=== PATIENT | female | born 1965 | race Caucasian/White ===

== ENCOUNTER 2018-08-27 18:57 | Emergency (ER) | payer SELFPAY ==
[2018-08-27 19:17] LABS: PLATELET COUNT, AUTOMATED 402 K/uL (150-450)
--- NOTE | 2018-08-27 19:17 | ER Report ---
History and Physical Time Seen By MD: 18:58 Hx. of Stated Complaint: UNRESPIONSIVE HPI/ROS CHIEF COMPLAINT: Altered mental status and responsive but breathing HISTORY OF PRESENT ILLNESS: 52-year-old female found by her daughter unresponsive but breathing. She had bilateral dilated pupils. Alcohol consumption. EMS performed fingerstick glucose which was 90. They administered Narcan 1 amp in route without provement of condition. On arrival, patient's not protecting her airway. She is unresponsive. She is intubated immediately on arrival. Patient's daughter states she was complaining of ear pain this morning when she was last seen around 9 AM. There was no response. When EMS inserted a nasal trumpet. Patient is moaning and moving all 4 extremities. REVIEW OF SYSTEMS: Unable to obtain due to altered mental status, Allergies: Coded Allergies: UNABLE TO OBTAIN (Unverified , 08/27/18) Constitutional Vital Sign - Last 24 Hours 08/27/18 08/27/18 08/27/18 08/27/18 18:57 18:58 18:58 19:00 Temp 97.3 Pulse 105 103 Resp 28 21 B/P (MAP) 122/75 128/86 (100) Pulse Ox 100 O2 Delivery Non-Rebreather O2 Flow Rate 15.0 08/27/18 08/27/18 08/27/18 08/27/18 19:02 19:07 19:09 19:10 Pulse 101 101 Resp 10 24 B/P (MAP) 119/68 (85) Pulse Ox 99 100 100 O2 Delivery Mechanical Ventilator FiO2 100.0 08/27/18 08/27/18 08/27/18 08/27/18 19:12 19:17 19:20 19:22 Pulse 87 82 81 Resp 51 8 26 B/P (MAP) 127/80 (96) Pulse Ox 100 100 100 08/27/18 08/27/18 08/27/18 08/27/18 19:25 19:27 19:30 19:32 Pulse 88 90 Resp 13 26 B/P (MAP) 118/91 (100) 120/79 (93) Pulse Ox 100 100 08/27/18 08/27/18 08/27/18 08/27/18 19:35 19:40 19:42 19:45 Pulse 91 Resp 48 B/P (MAP) 109/83 (92) 115/77 (90) 107/74 (85) Pulse Ox 99 08/27/18 08/27/18 08/27/18 08/27/18 19:47 19:50 19:52 19:55 Pulse 91 90 Resp 25 25 B/P (MAP) 104/73 (83) 104/70 (81) Pulse Ox 100 98 08/27/18 08/27/18 08/27/18 08/27/18 19:57 20:00 20:02 20:05 Pulse 89 88 Resp 21 26 B/P (MAP) 105/74 (84) 106/72 (83) Pulse Ox 99 99 08/27/18 08/27/18 08/27/18 08/27/18 20:10 20:15 20:20 20:25 Pulse 86 84 83 82 Resp 28 53 54 34 B/P (MAP) 100/70 (80) 84/54 (64) 84/51 (62) 86/49 (61) Pulse Ox 98 98 98 98 08/27/18 08/27/18 08/27/18 08/27/18 20:30 20:35 20:40 20:45 Pulse 82 ??? 71 66 Resp 38 24 24 24 B/P (MAP) 79/53 (62) 89/43 (58) 81/46 (58) 78/38 (51) Pulse Ox 98 99 98 95 08/27/18 08/27/18 08/27/18 08/27/18 20:50 20:55 21:00 21:05 Pulse 67 61 71 79 Resp 22 28 21 21 B/P (MAP) 76/42 (53) 67/34 (45) 82/53 (63) 93/51 (65) Pulse Ox 92 93 97 95 08/27/18 08/27/18 08/27/18 08/27/18 21:10 21:14 21:15 21:40 Pulse 85 86 Resp 15 15 B/P (MAP) 89/49 (62) 80/53 (62) Pulse Ox 98 99 100 O2 Delivery Mechanical Ventilator FiO2 50.0 Physical Exam Vital signs stable, pulse ox 100% on 100% nonrebreather, patient is unresponsive except has some stimulus to pain. She is not protecting her airway. She is not responding to a nasal trumpet. General Appearance: The patient is alert, has no immediate need for airway protection and no signs of toxicity. Patient appears grossly mottled and slightly cyanotic. Eyes: Pupils are dilated to about 7 mm bilaterally. The gaze is disconjugate ENT, Mouth: Mucous membranes are moist. Respiratory: There are no retractions, lungs are clear to auscultation. Cardiovascular: Regular rate and rhythm. Distant heart sounds, no murmur Gastrointestinal: Abdomen is soft and non tender, no masses, bowel sounds nor mal. Neurological: Unresponsive except to painful stimuli. Patient has movement of extremities 4 as she is moaning and thrashing about. Skin: Mottled, cool, dry skin Musculoskeletal: Neck is supple non tender. No meningismus, no lymphadenopathy Extremities are nontender, nonswollen and have full range of motion. DIFFERENTIAL DIAGNOSIS: After history and physical exam differential diagnosis was considered for altered mental status including but not limited to hypoglycemia, infectious process, electrolyte abnormality, head injury and intoxicants. Medical Decision Making Data Points Result Diagram: 08/27/18190408/27/181904 Laboratory Hematology Test 08/27/18 19:05 08/27/18 19:38 08/27/18 21:40 Red Blood Count 4.33 M/uL (4.17-5.56) Mean Corpuscular Volume 114.5 fL (80.0-96.0) Mean Corpuscular Hemoglobin 35.3 pg (26.0-33.0) Mean Corpuscular Hemoglobin Concent 30.8 g/dL (32.0-36.0) Red Cell Distribution Width 15.4 % (11.5-14.5) Mean Platelet Volume 7.5 fL (7.2-11.1) Neutrophils (%) (Auto) 60.9 % (39.4-72.5) Lymphocytes (%) (Auto) 31.8 % (17.6-49.6) Monocytes (%) (Auto) 6.2 % (4.1-12.4) Eosinophils (%) (Auto) 0.2 % (0.4-6.7) Basophils (%) (Auto) 0.9 % (0.3-1.4) Nucleated RBC Relative Count (auto) 0.1 /100WBC Neutrophils # (Auto) 13.7 K/uL (2.0-7.4) Lymphocytes # (Auto) 7.2 K/uL (1.3-3.6) Monocytes # (Auto) 1.4 K/uL (0.3-1.0) Eosinophils # (Auto) 0.0 K/uL (0.0-0.5) Basophils # (Auto) 0.2 K/uL (0.0-0.1) Nucleated RBC Absolute Count (auto) 0.02 K/uL Peripheral Blood Smear Yes Y/N Carboxyhemoglobin 0.0 % (< 5.0) Sodium Level 143 mmol/L (137-145) Potassium Level 5.3 mmol/L (3.5-5.0) Chloride Level 105 mmol/L (98-107) Carbon Dioxide Level < 5 mmol/L (22-31) Blood Urea Nitrogen 11 mg/dl (7-18) Creatinine 1.30 mg/dl (0.52-1.04) Glomerular Filtration Rate Calc 42.7 Random Glucose 294 mg/dl (75-110) Osmolality 420 mOSM/K (275-295) Lactate 9.5 mmol/L (0.7-2.1) Calcium Level 9.1 mg/dl (8.4-10.2) Magnesium Level 3.1 mg/dl (1.7-2.2) Total Bilirubin 0.8 mg/dl (0.2-1.3) Aspartate Amino Transf (AST/SGOT) 128 U/L (0-35) Alanine Aminotransferase (ALT/SGPT) 186 U/L (0-56) Alkaline Phosphatase 96 U/L (0-126) Ammonia 78 UMOL/L (9-33) Total Creatine Kinase 65 U/L (30-135) Troponin I < 0.012 ng/ml Total Protein 8.3 g/dl (6.3-8.2) Albumin 4.9 g/dl (3.5-5.0) Salicylates Level < 10 mg/L Salicylate Last Dose Date ? Acetaminophen Level < 10 ug/ml Serum Alcohol < 10 mg/dl Urine Color Straw Urine Clarity Clear Urine pH 6.0 pH (4.8-9.5) Urine Specific [place] 1.010 Urine Protein 30 mg/dL (NEGATIVE) Urine Glucose (UA) Negative mg/dL (NEGATIVE) Urine Ketones Negative mg/dL (NEGATIVE) Urine Blood Negative (NEGATIVE) Urine Nitrite Negative (NEGATIVE) Urine Bilirubin Negative (NEGATIVE) Urine Urobilinogen Negative mg/dL (0.2-1.9) Urine Leukocyte Esterase Negative (NEGATIVE) Urine RBC None /HPF (0-2/HPF) Urine WBC None /HPF (0-5/HPF) Urine Squamous Epithelial Cells Few /LPF (NONE-FEW) Urine Bacteria Negative /HPF (NONE-FEW) Urine Hyaline Casts Few /LPF (NONE-FEW) Urine Mucus None /HPF (NONE-FEW) Urine Opiates Screen Negative Urine Barbiturates Screen Negative Ur Tricyclic Antidepressants Screen Negative Urine Phencyclidine Screen Negative Urine Amphetamines Screen Negative Urine Benzodiazepines Screen Negative Urine Cocaine Screen Negative Urine Cannabinoids Screen Negative Blood Gas Puncture Site Femoral Blood Gas Patient Temperature 35 DEGREES Arterial Blood pH 6.80 (7.35-7.45) Arterial Blood Partial Pressure CO2 < 25 mmHg (32-37) Arterial Blood Partial Pressure O2 225 mmHg (60-80) Arterial Blood HCO3 4 mmol/L (20-26) Arterial Blood Oxygen Saturation 100 % (92-100) Arterial Blood Base Excess -30.0 mmol/L Kwaku Test Nt avail Oxygen Liters/Minute 60% Chemistry Test 08/27/18 19:05 08/27/18 19:38 08/27/18 21:40 White Blood Count 22.5 k/uL (4.5-11.0) Red Blood Count 4.33 M/uL (4.17-5.56) Hemoglobin 15.3 g/dL (12.0-16.0) Hematocrit 49.6 % (34.0-47.0) Mean Corpuscular Volume 114.5 fL (80.0-96.0) Mean Corpuscular Hemoglobin 35.3 pg (26.0-33.0) Mean Corpuscular Hemoglobin Concent 30.8 g/dL (32.0-36.0) Red Cell Distribution Width 15.4 % (11.5-14.5) Platelet Count 402 K/uL (150-450) Mean Platelet Volume 7.5 fL (7.2-11.1) Neutrophils (%) (Auto) 60.9 % (39.4-72.5) Lymphocytes (%) (Auto) 31.8 % (17.6-49.6) Monocytes (%) (Auto) 6.2 % (4.1-12.4) Eosinophils (%) (Auto) 0.2 % (0.4-6.7) Basophils (%) (Auto) 0.9 % (0.3-1.4) Nucleated RBC Relative Count (auto) 0.1 /100WBC Neutrophils # (Auto) 13.7 K/uL (2.0-7.4) Lymphocytes # (Auto) 7.2 K/uL (1.3-3.6) Monocytes # (Auto) 1.4 K/uL (0.3-1.0) Eosinophils # (Auto) 0.0 K/uL (0.0-0.5) Basophils # (Auto) 0.2 K/uL (0.0-0.1) Nucleated RBC Absolute Count (auto) 0.02 K/uL Peripheral Blood Smear Yes Y/N Carboxyhemoglobin 0.0 % (< 5.0) Glomerular Filtration Rate Calc 42.7 Osmolality 420 mOSM/K (275-295) Lactate 9.5 mmol/L (0.7-2.1) Calcium Level 9.1 mg/dl (8.4-10.2) Magnesium Level 3.1 mg/dl (1.7-2.2) Total Bilirubin 0.8 mg/dl (0.2-1.3) Aspartate Amino Transf (AST/SGOT) 128 U/L (0-35) Alanine Aminotransferase (ALT/SGPT) 186 U/L (0-56) Alkaline Phosphatase 96 U/L (0-126) Ammonia 78 UMOL/L (9-33) Total Creatine Kinase 65 U/L (30-135) Troponin I < 0.012 ng/ml Total Protein 8.3 g/dl (6.3-8.2) Albumin 4.9 g/dl (3.5-5.0) Salicylates Level < 10 mg/L Salicylate Last Dose Date ? Acetaminophen Level < 10 ug/ml Serum Alcohol < 10 mg/dl Urine Color Straw Urine Clarity Clear Urine pH 6.0 pH (4.8-9.5) Urine Specific [place] 1.010 Urine Protein 30 mg/dL (NEGATIVE) Urine Glucose (UA) Negative mg/dL (NEGATIVE) Urine Ketones Negative mg/dL (NEGATIVE) Urine Blood Negative (NEGATIVE) Urine Nitrite Negative (NEGATIVE) Urine Bilirubin Negative (NEGATIVE) Urine Urobilinogen Negative mg/dL (0.2-1.9) Urine Leukocyte Esterase Negative (NEGATIVE) Urine RBC None /HPF (0-2/HPF) Urine WBC None /HPF (0-5/HPF) Urine Squamous Epithelial Cells Few /LPF (NONE-FEW) Urine Bacteria Negative /HPF (NONE-FEW) Urine Hyaline Casts Few /LPF (NONE-FEW) Urine Mucus None /HPF (NONE-FEW) Urine Opiates Screen Negative Urine Barbiturates Screen Negative Ur Tricyclic Antidepressants Screen Negative Urine Phencyclidine Screen Negative Urine Amphetamines Screen Negative Urine Benzodiazepines Screen Negative Urine Cocaine Screen Negative Urine Cannabinoids Screen Negative Blood Gas Puncture Site Femoral Blood Gas Patient Temperature 35 DEGREES Arterial Blood pH 6.80 (7.35-7.45) Arterial Blood Partial Pressure CO2 < 25 mmHg (32-37) Arterial Blood Partial Pressure O2 225 mmHg (60-80) Arterial Blood HCO3 4 mmol/L (20-26) Arterial Blood Oxygen Saturation 100 % (92-100) Arterial Blood Base Excess -30.0 mmol/L [place]aku Test Nt avail Oxygen Liters/Minute 60% Toxicology Test 08/27/18 19:05 08/27/18 19:38 Salicylates Level < 10 mg/L Salicylate Last Dose Date ? Acetaminophen Level < 10 ug/ml Serum Alcohol < 10 mg/dl Urine Opiates Screen Negative Urine Barbiturates Screen Negative Ur Tricyclic Antidepressants Screen Negative Urine Phencyclidine Screen Negative Urine Amphetamines Screen Negative Urine Benzodiazepines Screen Negative Urine Cocaine Screen Negative Urine Cannabinoids Screen Negative Urinalysis Test 08/27/18 19:38 Urine Color Straw Urine Clarity Clear Urine pH 6.0 pH (4.8-9.5) Urine Specific [place] 1.010 Urine Protein 30 mg/dL (NEGATIVE) Urine Glucose (UA) Negative mg/dL (NEGATIVE) Urine Ketones Negative mg/dL (NEGATIVE) Urine Blood Negative (NEGATIVE) Urine Nitrite Negative (NEGATIVE) Urine Bilirubin Negative (NEGATIVE) Urine Urobilinogen Negative mg/dL (0.2-1.9) Urine Leukocyte Esterase Negative (NEGATIVE) Urine RBC None /HPF (0-2/HPF) Urine WBC None /HPF (0-5/HPF) Urine Squamous Epithelial Cells Few /LPF (NONE-FEW) Urine Bacteria Negative /HPF (NONE-FEW) Urine Hyaline Casts Few /LPF (NONE-FEW) Urine Mucus None /HPF (NONE-FEW) Microbiology Microbiology Date/Time Source Procedure Growth Status 08/27/18 19:56 Blood Peripheral Draw Blood Culture - Preliminary NO GROWTH AFTER 1 DAY, REINCUBATED Resulted 08/27/18 19:05 Blood Peripheral Draw Blood Culture - Preliminary NO GROWTH AFTER 1 DAY, REINCUBATED Resulted EKG/Imaging EKG Interpretation 12 lead EK Rhythm: normal sinus rhythm [place]: normal QRS: normal ST segments: normal, no evidence of ischemia or dysrhythmia Imaging X-ray: Single view portable chest x-ray was obtained. I viewed the images myself on the PACS system. My interpretation of the images is: Clear lung khan with ET tube in correct placement. 3 cm above the carlos, NG tube as noted in the stomach below the diaphragm. [place]. There is some hazy infiltrate in the left lower lobe. The radiologist interpretation had no clinically significant variation from this interpretation. Results: CT scan of the head without contrast was obtained. The results of the study are EXAMINATION: Head CT without intravenous contrast HISTORY: Altered mental status. COMPARISON: None. TECHNIQUE: Contiguous axial images were obtained from the skull base to the vertex without intravenous contrast. Sagittal and coronal reformatted images are also submitted. One of the following dose optimization techniques was utilized in the performance of this exam: Automated exposure control; adjustment of the mA and/or kV according to the patient's size; or use of an iterative reconstruct ion technique. Specific details can be referenced in the facility's radiology CT exam operational policy. FINDINGS: Brain and intracranial structures: Ventricles, sulci, and cisterns are normal in size. Galan-white matter differentiation is maintained. No midline shift, acute hemorrhage, acute infarct, or mass. Vessels: Mild calcification of the carotid siphons. Calvarium / scalp: Negative. No acute fracture. Skull base / visualized face: Nasogastric tube is partially visualized. Visualized sinuses / orbits: Prominent mucosal thickening in the maxillary sinuses with fluid in both maxillary sinuses. Opacification of the hypoplastic left frontal sinus and partial opacification of the right frontal sinus. Extensive opacification in the ethmoid air cells and near complete opacification of the sphenoid sinuses. IMPRESSION: No CT evidence of acute intracranial pathology. Extensive paranasal sinus mucosal disease. Correlate for signs of acute sinusitis. The study was read by the radiologist. I viewed the images myself on the PACS system. ED Course/Re-evaluation Clinical Indication for ER IV: Hydration, IV Access ED Course Patient was admitted to an examination room. H&P was done. The dental diagn oses was considered. On clinical examination. Patient has altered mental status. She has severe metabolic acidosis on arrival. She's rapidly intubated. Diagnostic studies are sent off. She has stigmata of alcoholism with an MCV of 114 and elevated ammonia level of 78, mildly elevated LFTs to the 120s. Her alcohol returns at 0. Her tox screen is unremarkable. Her salicylate and Tylenol are negative. Her osmolality returns at 420. His elevated anion gap of 43, suggesting a toxic ingestion of an anion gap. PH on blood gas after returning from CAT scan was 6.17, a CO2 of 23. A O2 of 89. Patient was treated with 1 amp of bicarbonate IV. A banana bag was administered as well as thia mine. A repeat ABG was performed. Procedure: Rapid sequence intubation. Indication for the procedure was, airway protection, altered mental status. The patient was preoxygenated with 100% oxygen by face mask. The patient was given the following IV medications: Etomidate 20 mg IV, succinyl choline 120 mg IV. The patient was orally endotracheally intubated under direct visualization with a 7.5 ETT. In line stabilization was performed during the procedure. Tracheal intubation was confirmed with misting on the tube; breath sounds were auscultated equally bilaterally; appropriate color change with [place] CO2 detector. Chest X-ray shows ETT in good position. The procedure was performed by Gael Maguire nurse practitioner under my direct supervision. An NG tube was also inserted 08/27/2018 8:20:28 pm is discussed with Dr Wolfgang Horton hospitalist on-call, who will come evaluate the patient and speak with the family. 08/27/2018 9:05:56 pm after consultation with Dr. Tran and the family. Patient will likely need higher level of care than available at our facility. Toxicology and dialysis may be needed since she has a elevated anion gap acidosis. 08/27/2018 9:22:59 pm case discussed with Dr. Patel signal operator at [facility] who accepts the patient is facility. He request fomepizole be administered Decision to Disposition Date: Aug 27, 2018 Decision to Disposition Time: 20:01 Critical Care Time I spent a total of 120 minutes of critical care time in obtaining history, performing a physical exam, bedside monitoring of interventions, collecting and interpreting tests and discussion with consultants but not including time spent performing procedures. Depart Departure Latest Vital Signs Vital Signs Date Time Temp Pulse Resp B/P (MAP) Pulse Ox O2 Delivery O2 Flow Rate FiO2 08/27/18 21:40 100 Mechanical Ventilator 50.0 08/27/18 21:15 86 15 08/27/18 21:14 80/53 (62) 08/27/18 18:58 97.3 08/27/18 18:58 15.0 Impression: Primary Impression: Altered mental status, unspecified Additional Impressions: Hyperammonemia Leukocytosis Metabolic acidosis Hyperosmolality Condition: Improved Disposition: XFER TO [facility] Problem Qualifiers Primary Impression: Altered mental status, unspecified Altered mental status type: delirium Qualified Codes: R41.0 - Disorientation, unspecified Additional Impressions: Leukocytosis Leukocytosis type: unspecified Qualified Codes: D72.829 - Elevated white blood cell count, unspecified HERO GILLIAM DO Aug 27, 2018 19:17
--- NOTE | 2018-08-27 19:37 | RADIOLOGY IMAGING REPORT ---
[place] [facility] [place] NAME: Wendie Arshad : 1965 MR: [id number] V: [id number] EXAM DATE: ORDERING PHYSICIAN: HERO GILLIAM TECHNOLOGIST: Location: [facility] Patient: Wendie Arshad : 1965 Visit/Account:[id number] Date of Sevice: 08/27/2018 CHEST SINGLE AP HISTORY: intubated for ams COMPARISON: None available FINDINGS: Frontal view chest obtained. Lines/tubes: Endotracheal tube tip approximately 5 cm above carlos. Nasogastric tube extends to left upper quadrant, beyond the field of view. EKG leads overlie the thorax. Lungs/pleura: Normally inflated. Mild prominence of the pulmonary vasculature which may be artifactua l and secondary to technique but no gross airspace infiltrate, significant volume pleural fluid or ra diographically evident pneumothorax. Cardiomediastinum and sebas: Grossly unremarkable. Bones/soft tissues: Unremarkable. Additional findings: None. IMPRESSION: 1. Support lines and tubes as above. 2. Mild prominence of the pulmonary vasculature, most likely artifactual and secondary to technique. 3. No gross evidence of an acute intrathoracic process. Report Dictated By: Brodie Murillo MD at 08/27/2018 7:31 PM Report E-Signed By: Brodie Murillo MD at 08/27/2018 7:33 PM WSN:[id number]
[2018-08-27] MEDS ORDERED: SUCCINYLCHOL CHL 200MG/10ML VL IVP ONE (19:50)
[2018-08-27] MEDS ORDERED: PROPOFOL EMUL 10MG/ML 20 ML VL IVP ONE (19:50)
[2018-08-27] MEDS ORDERED: ETOMIDATE 20 MG/10 ML VIAL IVP ONE (19:50)
[2018-08-27] MEDS ORDERED: PROPOFOL(*)1000 MG/100 ML VIAL 100 ML IV PRN (19:50)
[2018-08-27] MEDS ORDERED: EMS NS 0.9%(*) 1000 ML BAG 1,000 ML IV ONE (19:55)
[2018-08-27] MEDS ORDERED: NS(*) 0.9% 1000 ML BAG 1,000 ML IV ONE ×2 (19:55→21:10)
[2018-08-27] MEDS ORDERED: THIAMINE HCL(*) 200 MG/2 ML IN 100 MG, FOLIC ACID(*) 50 MG/10 ML INJ 1 MG, MULTIVITAMIN... IV ONE ×2 (20:06→20:15)
--- NOTE | 2018-08-27 20:06 | RADIOLOGY IMAGING REPORT ---
FACILITY: [facility] PATIENT NAME: Wendie Arshad : 1965 MR: [id number] V: [id number] EXAM DATE: ORDERING PHYSICIAN: HERO GILLIAM TECHNOLOGIST: Location: [facility] [place] Patient: Wendie Arshad : 1965 Visit/Account:[id number] Date of Sevice: 08/27/2018 EXAMINATION: Head CT without intravenous contrast HISTORY: Altered mental status. COMPARISON: None. TECHNIQUE: Contiguous axial images were obtained from the skull base to the vertex without intraven ous contrast. Sagittal and coronal reformatted images are also submitted. One of the following dose optimization techniques was utilized in the performance of this exam: Autom ated exposure control; adjustment of the mA and/or kV according to the patient's size; or use of an i terative reconstruction technique. Specific details can be referenced in the facility's radiology C T exam operational policy. FINDINGS: Brain and intracranial structures: Ventricles, sulci, and cisterns are normal in size. Galan-white ma tter differentiation is maintained. No midline shift, acute hemorrhage, acute infarct, or mass. Vessels: Mild calcification of the carotid siphons. Calvarium / scalp: Negative. No acute fracture. Skull base / visualized face: Nasogastric tube is partially visualized. Visualized sinuses / orbits: Prominent mucosal thickening in the maxillary sinuses with fluid in bot h maxillary sinuses. Opacification of the hypoplastic left frontal sinus and partial opacification of the right frontal sinus. Extensive opacification in the ethmoid air cells and near complete opacific ation of the sphenoid sinuses. IMPRESSION: No CT evidence of acute intracranial pathology. Extensive paranasal sinus mucosal disease. Correlate for signs of acute sinusitis. Report Dictated By: Jaime Barnes MD at 08/27/2018 7:53 PM Report E-Signed By: Jaime Barnes MD at 08/27/2018 8:02 PM WSN:[id number]
[2018-08-27] MEDS ORDERED: THIAMINE HCL 200 MG/2 ML INJ IVP ONE (20:10)
[2018-08-27] MEDS ORDERED: SODIUM BICARB 8.4% 50 MEQ/50ML IV ONE (20:50)
[2018-08-27 21:14] VITALS: BP 80/53
[2018-08-27] MEDS ORDERED: FOMEPIZOLE IV ONE ×2 (21:25)
[2018-08-27] MEDS ORDERED: NS 0.9% IV ONE ×2 (21:25)
[2018-08-27] MEDS ORDERED: LEVOPHED KIT (*) 1 IVSOL 1 KIT in D5W(*) 250 ML BAG 250 ML IVPB ONE (21:25)
[2018-08-27] MEDS ORDERED: SODIUM BICAR 8.4%* 50 MEQ/50ML 150 MEQ in D5W(*) 1000 ML BAG 1,000 ML IV SCH (21:45)
[2018-08-27] MEDS ORDERED: NS(*) 0.9% 100 ML BAG 100 ML ONE (22:05)
--- NOTE | 2018-08-27 23:00 | EKG ---
FACILITY: [facility] PATIENT NAME: TAMANNA JOHNSON : [id number] MR: [id number] V: [id number] EXAM DATE: ORDERING PHYSICIAN: HERO GILLIAM TECHNOLOGIST: ANDREA Test Reason : Blood Pressure : / mmHG Vent. Rate : 089 BPM Atrial Rate : 089 BPM P-R Int : 178 ms QRS Dur : 112 ms QT Int : 404 ms P-R-T Axes : 109 117 142 degrees QTc Int : 491 ms Suspect arm lead reversal, interpretation assumes no reversal Normal sinus rhythm Left posterior fascicular block Prolonged QT T inversion consistent with lateral ischemia vs normal variant No previous ECGs available Confirmed by AMARILIS RIVER ([id number]) on 08/28/2018 6:36:09 AM Referred By: MANE Confirmed By:AMARILIS RIVER
--- NOTE | 2018-08-27 23:27 | Hospitalist Consultation ---
History of Present Illness Requesting Physician Tim Reason for Consult AMS, elevated AG metabolic acidosis History of Present Illness 52yo female with a h/o intermittent heavy alcohol use who was brought to the ER after being found minimally responsive. She was seen this morning at about 0900. She reported that her ear hurt and she had nasal congestion. The patient lives with her daughters family in the basement. The family has been affected by a cold over the last couple of days. The daughter came home this evening and found the patient on the floor. The patient was mumbling incoherently and didn't recognize anyone. EMS was called. They gave her glucose and Narcan without effect. In the ER, she was intubated to protect her airway. The patient's daughter denied that the patient had expressed suicidality nor had she made any previous attempts. There were no obvious pill bottles or liquid bottles near the patient or in the house that worrisome for over ingestion. The patient has had issues with drinking too much alcohol in the past, but the daughter doesn't think that she currently drinks everyday History Problems: (1) Alcohol use (2) History of section Allergies: Coded Allergies: UNABLE TO OBTAIN (Unverified , 08/27/18) Other Social/Family Hx No current tobacco or illicit drug use. 3 years ago. See HPI. Review of Systems Other Unable to obtain Exam Vital Signs Vital Signs Date Time Temp Pulse Resp B/P (MAP) Pulse Ox O2 Delivery O2 Flow Rate FiO2 08/27/18 21:15 86 15 99 08/27/18 21:14 80/53 (62) 08/27/18 18:58 97.3 Non-Rebreather 08/27/18 18:58 15.0 General Appearance: Other (Intubated and sedated. Breathing over the venti lator) Neuro: Other (No voluntary movement) Eyes: Other (widely dilated pupils bilaterally that were minimally responsive) Cardiovascular: Regular Rate and Rhythm Respiratory: Clear to Auscultation GI: Other (Soft, non-distended) Extremities: No Edema Integumentary: No Jaundice, No Cyanosis Medical Decision Making Data Points Result Diagram: 08/27/18190408/27/181904 Item Value Date Time Mean Corpuscular Volume 114.5 fL H 08/27/181904 Neutrophils (%) (Auto) 60.9 % 08/27/181904 Lymphocytes (%) (Auto) 31.8 % 08/27/181904 Monocytes (%) (Auto) 6.2 % 08/27/181904 Eosinophils (%) (Auto) 0.2 % L 08/27/181904 Basophils (%) (Auto) 0.9 % 08/27/181904 Nucleated RBC Relative Count (auto) 0.1 /100WBC 08/27/181904 Arterial Blood pH 6.71 *L 08/27/181949 Arterial Blood pH 6.80 *L 08/27/18 214 Arterial Blood Partial Pressure CO2 28 mmHg L 08/27/181949 Arterial Blood Partial Pressure CO2 < 25 mmHg L 08/27/182139 Arterial Blood Partial Pressure O2 86 mmHg H 08/27/181949 Arterial Blood Partial Pressure O2 225 mmHg *H 08/27/182139 Arterial Blood HCO3 4 mmol/L *L 08/27/181949 Arterial Blood HCO3 4 mmol/L *L 08/27/182139 Total Bilirubin 0.8 mg/dl 08/27/181904 Aspartate Amino Transf (AST/SGOT) 128 U/L H 08/27/181904 Alanine Aminotransferase (ALT/SGPT) 186 U/L H 08/27/181904 Alkaline Phosphatase 96 U/L 08/27/181904 Ammonia 78 UMOL/L H 08/27/181904 Troponin I < 0.012 ng/ml 08/27/181904 Total Protein 8.3 g/dl H 08/27/181904 Albumin 4.9 g/dl 08/27/181904 Sodium Level 143 mmol/L 08/27/181904 Potassium Level 5.3 mmol/L H 08/27/181904 Chloride Level 105 mmol/L 08/27/181904 Carbon Dioxide Level < 5 mmol/L *L 08/27/181904 Blood Urea Nitrogen 11 mg/dl 08/27/181904 Creatinine 1.30 mg/dl H 08/27/181904 Glomerular Filtration Rate Calc 42.7 08/27/181904 Random Glucose 294 mg/dl H 08/27/181904 Calcium Level 9.1 mg/dl 08/27/181904 Urine Glucose (UA) Negative mg/dL 08/27/181937 Urine Ketones Negative mg/dL 08/27/181937 Urine Leukocyte Esterase Negative 08/27/181937 Urine RBC None /HPF 08/27/181937 Urine WBC None /HPF 08/27/181937 Urine Bacteria Negative /HPF 08/27/181937 Urine Squamous Epithelial Cells Few /LPF 08/27/181937 Acetaminophen Level < 10 ug/ml 08/27/181904 Serum Alcohol < 10 mg/dl 08/27/181904 Salicylates Level < 10 mg/L 08/27/181904 Urine Opiates Screen Negative 08/27/181937 Urine Barbiturates Screen Negative 08/27/181937 Ur Tricyclic Antidepressants Screen Negative 08/27/181937 Urine Phencyclidine Screen Negative 08/27/181937 Urine Amphetamines Screen Negative 08/27/181937 Urine Benzodiazepines Screen Negative 08/27/181937 Urine Cocaine Screen Negative 08/27/181937 Urine Cannabinoids Screen Negative 08/27/181937 EKG / Imaging Imaging CXR - 1. Support lines and tubes as above. 2. Mild prominence of the pulmonary vasculature, most likely artifactual and secondary to technique. 3. No gross evidence of an acute intrathoracic process. Head CT - No CT evidence of acute intracranial pathology. Extensive paranasal sinus mucosal disease. Correlate for signs of acute sinusitis. Assessment and Plan Problems: (1) Altered mental status, unspecified Status: Acute Assessment & Plan: She presented after being found minimally responsive. She was last seen at 0900 and was brought to the ED by 1900. She was intubated in the ER to protect her airway. See below. (2) Metabolic acidosis Status: Acute Assessment & Plan: Her pH was 7.1, HCO<5, AG >33, osmolar gap of about 114, ammonia of 78, and elevated MCV. With the acute change in mental status, concern of previous alcohol abuse, and the current lab abnormalities; there is a high probability of toxin ingestion like methanol or ethylene glycol. Because of those concerns, it is best for the patient to be transferred to a higher level of care. She will need specific testing for toxic ingestion, care from an solar energy installation manager/sports director, and possible dialysis. The plan was discussed with the family and ER physician who were in agreement. (3) Hyperammonemia Status: Acute Assessment & Plan: It is concerning that she drinks much more that her daughter realizes. If the patient has any meaningful recovery, then that issue will need to be addressed. (4) Leukocytosis Status: Acute Assessment & Plan: Likely a stress reaction. UA and CXR were without evidence of infection. Her abdominal exam was soft and non-distended, but she did have a high lactate. Copies to: HERO GILLIAM DO ; Venous Thromboembolism Antithrombotics Is Pt On Any Antithrombotics?: No Exam Sepsis Risk: No Definite Risk Problem Qualifiers (1) Altered mental status, unspecified: Altered mental status type: delirium Qualified Codes: R41.0 - Disorientation, unspecified (2) Leukocytosis: Leukocytosis type: unspecified Qualified Codes: D72.829 - Elevated white blood cell count, unspecified AMARILIS RIVER MD Aug 27, 2018 23:27
[2018-08-28] MEDS ORDERED: NOREPINEPH BITAR 4 MG/4 ML AMP ONE (01:52)
[2018-08-28] MEDS ORDERED: FOMEPIZOLE 1 GM/ML 1.5 ML VIAL IVPB ONE (02:25)
== END 2018-08-27 22:50 | disposition short-term general hospital (02) ==
LOC: ER 19:00
DX: R41.82 Altered mental status, unspecified (principal); E72.20 Disorder of urea cycle metabolism, unspecified; D72.829 Elevated white blood cell count, unspecified; E87.2 Acidosis; E87.0 Hyperosmolality and hypernatremia
CPT/HCPCS: 31500; 36415; 36600; 70450; 71045; 80305; 80320; 80329; 81001; 82140; 82375; 82550; 82803; 83605; 83735; 83930; 84443; 84484; 85025; 87040; 93005; 94002; 96361; 96365; 96367; 96375; 99291; 99292; J0330; J2704; J3411; J3475; J3490; J7030; J7050; J7060; 82040; 82247; 82310; 82374; 82435; 82565; 82947; 84075; 84132; 84155; 84295; 84450; 84460; 84520; C1758; J1451

== ENCOUNTER → 2018-08-27 | Outpatient (CLI) | payer SELFPAY | LOC: AMB 18:37 | PROVIDERS: ATTEND Nurse Practitioner | DX: R40.20 Unspecified coma (principal); R23.0 Cyanosis; R06.00 Dyspnea, unspecified; R61 Generalized hyperhidrosis | CPT/HCPCS: A0425; A0427 ==

== ENCOUNTER → 2018-08-28 | Outpatient (REF) | LOC: AMB 21:37 | PROVIDERS: ATTEND Nurse Practitioner | DX: Z02.9 Encounter for administrative examinations, unspecified (principal) ==